=== PATIENT | female | born 1985 | race Caucasian/White ===

== ENCOUNTER 2017-06-29 19:27 | Emergency (ER) | payer BC ==
--- NOTE | 2017-06-29 20:03 | ED Physician Chart ---
ED Chief Complaint/HPI - Patient Information Date Seen:: 06/29/17 Time Seen:: 19:48 Chief Complaint:: RIGHT ANKLE SPRAIN History of Present Illness:: THIS IS A 31 YO FEMALE WHO STEPPED OFF A CURVE THIS EVENING AND SUSTAINED AND INJURY TO HER RIGHT ANKLE. SHE DENIES ALL OTHER INJURIES. SHE DENIES HAVING ANY PREVIOUS ANKLE INJURIES. SHE DENIES DIABETES, HYPERTENSION AND HEART DISEASE. SHE IS ALSO CONCERNED ABOUT HER URINE HAS A FOUL SMELL. THE PAIN IN THE ANKLE IS 5/10 WHICH INCREASES WITH MOVEMENT. Allergies:: Allergies Allergy/AdvReac Type Severity Reaction Status Date / Time No Known Allergies Allergy Verified 06/29/17 19:49 Vitals:: Vital Signs - 8 hr 06/29/17 19:35 Temp 98.1 F HR 79 RR 18 BP 113/69 O2 Sat % 99 Historian:: Patient Review:: Nurse's Note Reviewed ED Review of Systems - Review of Systems General/Constitutional: No fever, No chills, No weight loss, No weakness, No diaphoresis, No edema, No loss of appetite Skin: No skin lesions, No rash, No bruising Head: No headache, No light-headedness Eyes: No loss of vision, No pain, No diplopia ENT: No earache, No nasal drainage, No sore throat, No tinnitus Neck: No neck pain, No swelling, No thyromegaly, No stiffness, No mass noted Cardio Vascular: No chest pain, No palpitations, No PND, No orthopnea, No edema Pulmonary: No SOB, No cough, No sputum, No wheezing GI: No nausea, No vomiting, No diarrhea, No pain, No melena, No hematochezia, No constipation, No hematemesis G/U: Dysuria, No frequency, No hematuria Musculoskeletal: Bone or joint pain (RIGHT ANKLE PAIN AND SWELLING), No back pain, No muscle pain Endocrine: No polyuria, No polydipsia Psychiatric: No prior psych history, No depression, No anxiety, No suicidal ideation Hematopoietic: No bruising, No lymphadenopathy Allergic/Immuno: No urticaria, No angioedema Neurological: No syncope, No focal symptoms, No weakness, No paresthesia, No headache, No seizure, No dizziness, No confusion, No vertigo ED Past Medical History - Past Medical History Obtainable: Yes Past Medical History: No significant medical hx Family History: None Social History: Smoker, Alcohol, No Drug Use, Employed Surgical History: Cholecystectomy Psychiatricy History: None Medication: Reviewed Family Medical History - Family Member Mother Ethnicity: Non- Living Status: Still Living Hx Family Hypertension: Yes Hx Family Diabetes: Yes ED Physical Exam - Physical Examination General/Constitutional: Awake, Well-developed, well-nourished, Alert, No distress, GCS 15, Non-toxic appearing, Ambulatory Head: Atraumatic Eyes: Lids, conjuctiva normal, PERRL, EOMI Skin: Nl inspection, No rash, No skin lesions, No ecchymosis, Well hydrated, No lymphadenopathy ENMT: External ears, nose nl, Nasal exam nl, Lips, teeth, gums nl Neck: Nontender, Full ROM w/o pain, No JVD, No nuchal rigidity, No bruit, No mass, No stridor Respiratory: Nl effort/Exclusion, Clear to Auscultation, No Wheeze/Rhonchi/Rales Cardio Vascular: RRR, No murmur, gallop, rubs, NL S1 S2 GI: No tenderness/rebounding/guarding, No organomegaly, No hernia, Normal BS's, Nondistended, No mass/bruits, No McBurney tenderness : No CVA tenderness Extremities: No tenderness or effusion (THE LATERAL MALLELOUS IS TENDER SWOLLEN WITH PAIN ROM.), Full ROM, normal strength in all extremities, No edema , Normal digits & nails Neuro/Psych: Alert/oriented, DTR's symmetric, Normal sensory exam, Normal motor strength, Judgement/insight normal, Mood normal, Normal gait, No focal deficits Misc: Normal back, No paraspinal tenderness ED Labs/Radiology/EKG Results - Lab Results Results: Laboratory Tests 06/29/17 19:44 POC Ur Test Negative - Radiology Results Results: RIGHT ANKLE X-RAY = NO FRACTURE SEEN ED Assessment - Assessment General Assessment: SPRAINED RIGHT ANKLE ED Septic Shock - . Is Septic Shock (SBP<90, OR Lactate>4 mmol\L) present?: No - <6hrs of presentation: Vital Signs: Vital Signs - 8 hr 06/29/17 19:35 Temp 98.1 F HR 79 RR 18 BP 113/69 O2 Sat % 99 ED Reassessment (Disposition) - Reassessment Reassessment Condition:: Improved - Diagnosis Diagnosis:: SPRAINED RIGHT ANKLE URINARY FUNGAL INFECTION - Aftercare/Follow up Instructions Aftercare/Follow-Up Instructions:: Counseled pt regarding lab results/diagnosis & need follow up, Refer to Discharge Instructions, Counseled pt & family regarding lab results/diagnosis & need follow up - Patient Disposition Discharge/Transfer:: Home Condition at Disposition:: Stable, Improved ED Discharge Plan - Patient Disposition Admit/Discharge/Transfer: PT DISCHARGED HOME Condition at Disposition: Improved Instructions: Ankle Sprain, [id number] Additional Instructions: MAKE A FOLLOW UP WITH PRIMARY MEDICAL DOCTOR, IMMOBILIZE AND ELEVATE AFFECTED LEG, COMPLY WITH PRESCRIBED MEDICATION, GO BACK TO EMERGENCY ROOM IF SYMPTOMS WORSEN. Forms: Work Release Form
[2017-06-29 20:37] LABS: URINE MICROSCOPIC INDICATED? YES; URINE SOURCE RANDOM
[2017-06-29 20:42] LABS: URINE BILIRUBIN NEGATIVE (NEGATIVE); URINE BLOOD NEGATIVE (NEGATIVE); URINE GLUCOSE (UA) NEGATIVE (NEGATIVE); URINE KETONE NEGATIVE (NEGATIVE); URINE LEUKOCYTE ESTERASE MODERATE (NEGATIVE); URINE NITRATE NEGATIVE (NEGATIVE); URINE PROTEIN TRACE mg/dL (NEGATIVE); URINE UROBILINOGEN 0.2 E.U./dL (0.2 - 1.0)
[2017-06-29 20:46] LABS: URINE CLARITY HAZY (CLEAR); URINE COLOR YELLOW
[2017-06-29 20:54] LABS: URINE RBC NONE SEEN /hpf (0-5)
[2017-06-29 20:55] LABS: URINE BACTERIA NONE SEEN /hpf (NONE SEEN); URINE EPITHELIAL CELLS MANY /lpf (FEW)
--- NOTE | 2017-06-30 09:50 | Diagnostic Imaging Report ---
Right ankle 3 views Indication: Trauma Comparison: none Findings: There is soft tissue swelling surrounding the ankle greatest laterally. Mild degenerative changes are seen with there is a marginal osteophytic spurring. Small distal Achilles tendon and Small plantar calcaneal spur is noted. No dislocation. IMPRESSION: No evidence of an acute fracture. Soft tissue swelling is seen surrounding the ankle, greatest laterally. Ligamentous injury cannot be excluded. In the setting of trauma, if clinical symptoms persist and there is continued concern for an occult fracture, follow-up exam including repeat x-ray or possibly CT examination 5-7 days is recommended.
== END 2017-06-29 20:55 | disposition home or self-care (01) ==
LOC: ER 19:27
DX: S93.401A Sprain of unspecified ligament of right ankle, initial encounter (principal); B37.49 Other urogenital candidiasis; F17.200 Nicotine dependence, unspecified, uncomplicated; X58.XXXA Exposure to other specified factors, initial encounter; Y92.89 Other specified places as the place of occurrence of the external cause; Y93.89 Activity, other specified; Y99.8 Other external cause status
CPT/HCPCS: 73610-RT-TC; 81001-TC; 81025-TC; 87086-90